=== PATIENT | female | born 1945 | race Caucasian/White ===

== ENCOUNTER → 2024-04-12 17:17 | Outpatient (REF) | payer OTHER, SELFPAY | LOC: WDC 17:17 | PROVIDERS: ATTENDING PHYSICIAN Surgery; FAMILY PHYSICIAN Family Medicine | DX: Z12.31 Encounter for screening mammogram for malignant neoplasm of breast (principal); C50.412 Malignant neoplasm of upper-outer quadrant of left female breast | CPT/HCPCS: 77063; 77067 ==

== ENCOUNTER 2025-02-07 20:04 | Emergency (ER) | payer OTHER, SELFPAY ==
[2025-02-07 20:06] VITALS: BP 172/90
[2025-02-07 20:25] LABS: % Basophils 0.4 % (0-2); % Eosinophils 0.6 % (0-6); % Immature Granulocytes 0.4 % (0-0.5); % Lymphocytes 14.5 % (20.5-51.1); % Monocytes 6.6 % (1.7-9.3); % Neutrophils 77.5 % (42.2-75.2); Absolute Monocytes 0.5 10^3/uL (0.1-0.6); Absolute Neutrophils 5.4 10^3/uL (1.4-6.5); Hemoglobin 14.8 g/dL (12.0-16.0); Mean Corp Hgb Conc. 33.6 g/dL (33.0-37.0); Mean Corpuscular Hgb 32.4 pg (27.0-31.0); Mean Corpuscular Volume 96.3 fL (81.0-99.0); Mean Platelet Volume 8.9 fL (7.4-10.4); Nucleated Red Blood Cells % 0 %; Platelet Count 294 10^3/uL (130-400); Red Blood Cell Count 4.57 10^6/uL (4.20-5.40)
[2025-02-07 20:36] LABS: ALT (SGPT) 14 U/L (0-35); AST (SGOT) 21 U/L (14-36); Albumin 3.9 g/dl (3.5-5.0); Alkaline Phosphatase 73 U/L (38-126); Blood Urea Nitrogen 14 mg/dl (7-17); Calcium 9.8 mg/dl (8.4-10.2); Carbon Dioxide 24 mmol/L (22-30); Chloride 108 mmol/L (98-107); Glucose 122 mg/dl (70-99); Sodium 139 mmol/L (135-145); Total Bilirubin 0.7 mg/dl (0.2-1.3); Total Protein 6.5 g/dl (6.3-8.2); eGFR > 60.00
[2025-02-07 20:37] LABS: D-Dimer 0.44 ug/mlFEU (0.00-0.50)
[2025-02-07 20:39] VITALS: BP 171/76
[2025-02-07 20:49] LABS: Troponin I < 0.012 ng/ml
[2025-02-07 21:00] VITALS: BP 160/82
[2025-02-07 21:38] VITALS: BMI 30.7
[2025-02-07 22:00] VITALS: BP 187/77
[2025-02-07 22:28] LABS: COVID-19 Antigen Negative (Negative)
[2025-02-07 22:52] VITALS: BP 164/82
[2025-02-07 22:54] LABS: NT-proBNP 311 pg/ml
[2025-02-07 23:00] VITALS: BP 166/75
--- NOTE | 2025-02-07 23:39 | ED.GENMED ---
History of Present Illness
General
Chief Complaint: Breathing Problem
Source: patient
Exam Limitations: none
Time Seen by Provider: 02/07/25 21:42
Nursing documentation reviewed up to this point in time: agreed with
History of Present Illness
History of Present Illness:
pt is a 79/o F
from home lives with son who is primary historian
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
she has some dementia/memory loss
on eliquis (has had 3 PE previuosly)
missed dose of eliquis last week for some reason
had cough, coldsymptoms which are not significantly worse but she still has mild cough
today son noticed around 3 pm that she seemed sob and had chest tightnesss with walking a short distance
he is worried about a PE. Patient has not had a fever, she has no chest pain or shortness of breath at rest, there is no hemoptysis, leg swelling, syncope. She has no cardiac history.
Past History
Past History
ED Past Medical History: Other (keyana coughlin)
ED Past Surgical History: Other
Social History
Tobacco: Non-smoker
Personal:
Living: with family
Family History
Family History: Other
Review of Systems
Review of Systems
Allergies reviewed?: Yes
Unable to obtain full review of systems at this time due to: dementia
Other source history: family
All Other Systems: Not applicable
Phy Exam
Physical Exam
Physical Exam:
GENERAL: Alert , in no apparent distress very well-appearing
EYE: pupils equal and reactive
NECK: Supple
ENT: o/p clr, mmm.
CARDIAC: Regular rate and rhythm . No edema
LUNGS: Clear breath sounds bilaterally, no acute respiratory distress, no wheezes/rales/rhonchi, no cough
ABDOMEN: Soft, without focal tenderness, no r/g, no cvat, normal bowel sounds
NEUROLOGICAL: Alert and oriented x 2, no focal neuro deficits
SKIN: Warm and dry, skin intact.
MUSCULOSKELETAL: No edema, well perfused. neg chandni's sign
PSYCH: Normal and appropriate interaction. Patient has some limited memory, often times confused and answers differently than her son
Scores
Heart Failure Risk
Heart Failure Risk Score: Not Applicable
Course
Orders/Labs/Results
Orders:
Orders
02/07/25 20:09
Electrocardiogram (*1) Urgent
Reason for Study: Shortness of Breath
02/07/25 20:17
EKG- Treatment ONCE
02/07/25 20:18
Complete Blood Count/With Diff Urgent
Comprehensive Metabolic Panel Urgent
D-Dimer Urgent
NT-proBNP Urgent
Comment: ADD ON
Troponin I Urgent
02/07/25 20:30
Electrocardiogram (*1) Urgent
Reason for Study: Shortness of Breath
02/07/25 22:03
CT Chest PE Study Urgent
Comment:
Reason For Exam: missed doses eliquis, h/o PE, sob
02/07/25 22:04
Add On- LAB Urgent
Tests Added?: bnp
02/07/25 22:10
COVID-19 Antigen Urgent
Source: Nasal Swab
Influenza A+B Rapid Molecular Urgent
YSABEL Source: Nasal Swab
Specimen Description:
02/07/25 23:48
Azithromycin [Zithromax] 500 mg PO NOW STA
Abnormal Lab Results
02/07/25
20:18
MCH 32.4 H pg
(27.0-31.0)
Absolute Lymphs (auto) 1.0 L 10^3/uL
(1.2-3.4)
Neutrophils % 77.5 H %
(42.2-75.2)
Lymphocytes % 14.5 L %
(20.5-51.1)
Chloride 108 H mmol/L
(98-107)
Glucose 122 H mg/dl
(70-99)
02/07/25 20:18
02/07/25 20:18
Vital Signs
Initial and Last Documented VS:
Initial Vital Signs
Temp Pulse Resp BP Pulse Ox
36.8 C 81 18 172/90 97
02/07/25 20:06 02/07/25 20:06 02/07/25 20:06 02/07/25 20:06 02/07/25 20:06
Last Documented Vital Signs
Temp Pulse Resp BP Pulse Ox
36.8 C 60 14 168/78 98
02/07/25 20:06 02/08/25 00:00 02/08/25 00:00 02/08/25 00:00 02/08/25 00:00
MDM/Problems Addressed
Differential Diagnosis Includes:
PE, COVID, pneumonia, failure
MDM/Problems Addressed:
79-year-old female coming from home, previous saddle embolus causing a cardiac arrest, some poor memory at baseline here with her son, missed a dose of her Eliquis last week and he visibly saw her be short of breath and complained of chest tightness
earlier this afternoon. It seems to have resolved and she is in no distress now. She has had a little bit of a cough cold symptoms for the last week. He wants to be sure there is no blood clot. Triage did send D-dimer however I discussed this
case with ED attending Dr. wall and we felt that given her strong history of PE and previous PEs she was not a low risk candidate to apply the D-dimer to so we opted to perform a PE study. She also has a new right bundle branch block.
Her troponin was negative, BNP was normal. Her CT shows some questionable lower lobe atelectasis versus inflammatory interstitial pneumonitis. There is no focal pneumonia. She did an ambulatory trial around the department without any tachypnea or
hypoxia. She feels comfortable going home. Will prescribe Zithromax
*Critical Care Note
Total Time (30-74mins, 75-104mins- exclusive of procedures): Not Applicable
ED Attending Note
-
Portions of this chart may have been created with voice recognition software.� Occasional wrong word or��sound alike� substitutions may have occurred due to the inherent limitations of voice recognition software.
Discharge Plan
Departure
Patient Disposition: Home (Routine Discharge)
Date of Disposition: 02/07/25
Time of Disposition: 23:45
Patient with high blood pressure during this ER visit?: No
Covid-19: Not Applicable
Discharge Problem:
Mild shortness of breath, Pneumonitis
Instructions: Shortness of Breath (Dyspnea) (DC)
Prescriptions:
New
azithromycin [Zithromax] 250 mg tablet
250 mg PO DAILY Qty: 4 0RF
No Action
paroxetine HCl 20 MG tablet
20 mg PO DAILY
fenofibrate 160 MG tablet
160 mg PO DAILY Qty: 0
pantoprazole 40 MG tablet,delayed release (DR/EC)
40 mg PO DAILY Qty: 30 0RF
Eliquis 2.5 MG tablet
5 mg PO BID
docusate sodium [Stool Softener] 100 mg Capsule
100 mg PO DAILY
Women's 50 Plus Multivitamin
1 tab PO DAILY
enoxaparin [Lovenox] 40 mg/0.4 mL Syringe
40 mg SC Q12H
Rx Instructions:
dosage unconfirmed
Referrals:
Greg Contreras MD [Family Provider] -
Activity Restrictions/Additional Instructions:
CAT scan shows no signs of a new blood clot. You may have a little inflammation in your lungs. Try Zithromax, take 1 tablet daily starting tomorrow Wednesday. Follow-up with your family doctor. Watch for worsening shortness of breath or chest
discomfort and return immediately as needed. She did have a change to her EKG which may not be clinically significant. You should follow-up with her family doctor about this. She has was called a new right bundle branch block. There was no sign
of a cardiac emergency.
Return for worsening symptoms
Interventions
Interventions:
*Risk Screen - Suicide Last Done: 02/07/25 20:06
*General Assessment Last Done: 02/07/25 20:06
*Neglect/Abuse Screening Last Done: 02/07/25 20:06
*ED COVID-19 Vaccine History Last Done: 02/07/25 20:06
ED- Cardiac Assessment Last Done: 02/07/25 21:38
ED- Pulmonary Assessment Last Done: 02/07/25 21:38
Discharge Date and Time
Print Language: TANZANIAN
[2025-02-08] VITALS: BP 168/78
[2025-02-08] MEDS: ZITHROMAX 500 MG PO (00:25)
== END 2025-02-08 00:38 | disposition home or self-care (01) ==
LOC: EMR 20:04
PROVIDERS: Emergency Medicine; Physician Assistant; EMERGENCY PHYSICIAN Emergency Medicine; FAMILY PHYSICIAN Internal Medicine
DX: R06.02 Shortness of breath (principal); J98.4 Other disorders of lung; F03.90 Unspecified dementia, unspecified severity, without behavioral disturbance, psychotic disturbance, mood disturbance, and anxiety; I45.10 Unspecified right bundle-branch block; Z86.711 Personal history of pulmonary embolism; Z86.74 Personal history of sudden cardiac arrest
CPT/HCPCS: 99284; 71275; 80053; 83880; 84484; 85025; 85379; 87502; 87811; 93005; Q9967